=== PATIENT | female | born 1965 | race Caucasian/White ===

== ENCOUNTER 2019-12-23 08:30 | Emergency (ER) | payer SELFPAY ==
[~2019-12-23] VITALS: Ht 167.6 cm; Wt 74.4 kg
[2019-12-23] MEDS ORDERED: HALOPERIDOL LACTATE INJ 5 MG/ML VIAL ONE (08:58)
[2019-12-23] MEDS ORDERED: LORAZEPAM INJ 2 MG/ML VIAL IM ONE (09:00)
[2019-12-23] MEDS ORDERED: HALOPERIDOL LACTATE INJ 5 MG/ML VIAL IM ONE (09:00)
[2019-12-23] MEDS ORDERED: LORAZEPAM INJ 2 MG/ML VIAL ONE (09:00)
--- NOTE | 2019-12-23 09:03 | NUR ---
ASPEN 860 FROM HOME, ACTING BIZZARE. YELLING. 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 TO ER BED 10, HOOKED TO MONITOR, CHANGED TO HOSP GOWN, WARM BLANKET PROVIDED, DR CAIN AT BEDSIDE
--- NOTE | 2019-12-23 09:05 | NUR ---
SITTER AT BEDSIDE FOR SAFETY
[2019-12-23 09:29] LABS: BASOPHILS # (AUTO) 0.1 /CMM (0.0-0.2); BASOPHILS % (AUTO) 0.5 % (0.0-2.0); EOSINOPHILS % (AUTO) 0.2 % (0.0-6.0); HEMATOCRIT 43 % (33-45); HEMOGLOBIN 14.4 g/dL (11.5-14.8); LYMPHOCYTES # (AUTO) 1.2 /CMM (0.8-4.8); LYMPHOCYTES % (AUTO) 9.9 % (20.0-44.0); MEAN CORPUSCULAR HGB CONC 34 g/dl (31.0-36.0); MEAN CORPUSCULAR VOLUME 90 fL (82-100); MONOCYTES # (AUTO) 0.8 /CMM (0.1-1.30); MONOCYTES % (AUTO) 6.8 % (2.0-12.0); NEUTROPHILS # (AUTO) 10.3 /CMM (1.8-8.9); NEUTROPHILS % (AUTO) 82.6 % (43.0-81.0); PLATELET COUNT (AUTO) 343 /CMM (150-450); WHITE BLOOD COUNT (AUTO) 12.5 K/uL (4.3-11.0)
[2019-12-23 09:37] LABS: CALCIUM, SERUM 9.7 mg/dL (8.5-10.1); CARBON DIOXIDE 19 mmol/L (21-32); CHLORIDE 101 mmol/L (98-107); CREATININE 1.2 mg/dL (0.6-1.3); GLUCOSE 94 mg/dL (74-106); POTASSIUM 3.5 mmol/L (3.5-5.1); SODIUM SERUM 139 mmol/L (136-145); UREA NITROGEN, BLOOD 24 mg/dL (7-18)
[2019-12-23 09:43] LABS: ACETAMINOPHEN 0 ug/ml (10-30); ALANINE AMINOTRANSFERASE 48 U/L (12-78); ALBUMIN 4.3 g/dL (3.4-5.0); ALCOHOL, BLOOD < 3 mg/dL (0-0); ALKALINE PHOSPHATASE 60 U/L (46-116); ASPARTATE AMINOTRANSFERASE 70 U/L (15-37); BILIRUBIN,DIRECT 0.3 mg/dL (0.0-0.2); BILIRUBIN,TOTAL 1.6 mg/dL (0.2-1.0); SALICYLATE 2.1 mg/dL (2.8-20.0); TOTAL PROTEIN, SERUM 8.3 g/dL (6.4-8.2)
[2019-12-23 09:54] LABS: APPEARANCE,URINE Clear (CLEAR); BILIRUBIN,URINE MODERATE (NEGATIVE); BLOOD, URINE Moderate Ery/uL (NEGATIVE); COLOR,URINE Yellow (YELLOW); KETONES,URINE >=160 (NEGATIVE); LEUKOCYTE ESTERASE ,URINE Negative (NEGATIVE); NITRITE, URINE Negative (NEGATIVE); PH,URINE 5.5 (5.0-8.0); PROTEIN,URINE 100 mg/dl (NEGATIVE); UGLUCOSE Negative (NEGATIVE); UROBILINOGEN,URINE 0.2 EU/dL (0.2)
[2019-12-23 09:59] LABS: BACTERIA,URINE Few /HPF (None Seen); SQUAMOUS EPITHELIAL CELL,UR Few /HPF (None Seen)
--- NOTE | 2019-12-23 11:06 | NUR ---
PATIENT IN BED ASLEEP, EASILY AROUSABLE BY VOICE. HOOKED TO MONITOR. VSS. SITTER AT BEDSIDE. WILL CONTINUE TO MONITOR ACCORDINGLY
--- NOTE | 2019-12-23 12:15 | NUR ---
SISTER: EMELINA KAMINSKI [phone]
--- NOTE | 2019-12-23 12:35 | NUR ---
CALLED [facility] [phone] SUGGESTED TO HAVE YONATAN SPEAK WITH PT FIRST.
--- NOTE | 2019-12-23 13:07 | NUR ---
CRISTAL MATTHEW ([facility]) [phone]
--- NOTE | 2019-12-23 13:09 | NUR ---
PATIENT IN BED ASLEEP, EASILY AROUSABLE BY VOICE. HOOKED TO MONITOR. VSS. SITTER AT BEDSIDE. WILL CONTINUE TO MONITOR ACCORDINGLY
--- NOTE | 2019-12-23 15:16 | NUR ---
PATIENT IN BED ASLEEP, EASILY AROUSABLE BY VOICE. HOOKED TO MONITOR. VSS. SITTER AT BEDSIDE. WILL CONTINUE TO MONITOR ACCORDINGLY
--- NOTE | 2019-12-23 17:37 | NUR ---
CALLED [facility] [phone] GOING TO [facility] FIRST THEN HEADED HERE.
--- NOTE | 2019-12-23 17:56 | NUR ---
PATIENT IN BED COMFORTABLY ASLEEP, EASILY AROUSABLE BY VOICE. HOOKED TO MONITOR. VSS. SITTER AT BEDSIDE. WILL CONTINUE TO MONITOR ACCORDINGLY
--- NOTE | 2019-12-23 19:02 | NUR ---
PATIENT IN BED COMFORTABLY ASLEEP, EASILY AROUSABLE BY VOICE. HOOKED TO MONITOR. VSS. SITTER AT BEDSIDE. WILL CONTINUE TO MONITOR ACCORDINGLY
--- NOTE | 2019-12-23 19:26 | NUR ---
REPORT GIVEN TO BIJU APARICIO FOR PAULINE
--- NOTE | 2019-12-23 19:43 | NUR ---
REPORT RECEIVED FROM BESOS, FOR PAULINE
--- NOTE | 2019-12-23 20:01 | NUR ---
[facility]LLY CRISIS SUPERVISOR ASSEMBLY DEPARTMENT AT BEDSIDE.
--- NOTE | 2019-12-23 21:19 | NUR ---
PT RESTING COMFORTABLY IN BED. VSS. NO ACUTE DISTRESS NOTED. WILL CONTINUE TO MONITOR
--- NOTE | 2019-12-23 21:40 | NUR ---
RENE NELSONS SON
[2019-12-23 22:00] VITALS: BP 117/84
--- NOTE | 2019-12-23 22:00 | NUR ---
Patient is medically cleared to be discharged home in stable condition. Written and verbal after care instructions given. Patient and family verbalize understanding of instruction. Denies SI/HI.
== END 2019-12-23 22:01 | disposition home or self-care (01) ==
LOC: ER 08:35
DX: F29 Unspecified psychosis not due to a substance or known physiological condition (principal); R45.851 Suicidal ideations; R45.1 Restlessness and agitation
CPT/HCPCS: 36415; 80048; 80076; 80305; 80307; 80329; 81001; 84703; 85025; 96372 ×2; 99285; G0480; J1630; J2060; 81000-TC